=== PATIENT | male | born 1970 | race Caucasian/White ===

== ENCOUNTER 2018-02-13 05:42 | Day surgery (SDC) | payer OTHER ==
[~2018-02-13] VITALS: Ht 175.3 cm; Wt 110.7 kg
[~2018-02-13 05:42] MED LIST: HYDR25TA PO; LACTATED RINGERS 1,000 ML IV SCH
[2018-02-13 06:17] LABS: BASOPHILS % 0.5 % (0.0-2.0); EOSINOPHILS % 1.1 % (0.0-5.0); HEMATOCRIT. 48.8 % (42.0-52.0); HEMOGLOBIN. 17.5 g/dL (14.0-18.0); LYMPHOCYTES % 23.9 % (20.0-50.0); MEAN CORPUSCULAR HEMOGLOBIN 32.5 pg (28.0-32.0); MEAN CORPUSCULAR VOLUME 90.9 fL (80.0-94.0); MEAN PLATELET VOLUME 8.3 fl (7.4-10.4); MONOCYTES % 9.3 % (2.0-8.0); NEUTROPHILS % 65.2 % (40.0-76.0); PLATELET 411 x1000/uL (130-400); RED BLOOD CELL COUNT 5.37 mill/uL (4.7-6.1); RED CELL DISTRIBUTION WIDTH 12.7 % (11.6-14.6)
[2018-02-13 06:27] LABS: CHLORIDE 102 mEq/L (98-107)
[2018-02-13] MEDS ORDERED: BUPIVACAINE HCL 0.5% (5MG/ML) 50ML ONE (06:51)
[2018-02-13] MEDS ORDERED: SKIN ADHESIVE 0.7 GM EA TOP ONE (06:51)
[2018-02-13 07:45] LABS: CLARITY URINE CLEAR (CLEAR); COLOR URINE YELLOW (YELLOW); KETONES URINE NEGATIVE (NEGATIVE); LEUKOCYTE ESTERASE URINE NEGATIVE (NEGATIVE); NITRITE URINE NEGATIVE (NEGATIVE); OCCULT BLOOD URINE NEGATIVE (NEGATIVE); PROTEIN URINE NEGATIVE (NEGATIVE); SPECIFIC GRAVITY URINE 1.017 (1.005-1.030); UROBILINOGEN URINE 0.2 E.U./dL (0.2-1.0)
[2018-02-13] MEDS ORDERED: GLYCOPYRROLATE 0.2 MG/ML 2ML VIAL ONE (09:03)
[2018-02-13] MEDS ORDERED: ROCURONIUM BROMIDE 10MG/ML VIAL 5ML IV ONE (09:03)
[2018-02-13] MEDS ORDERED: FENTANYL CITRATE/PF 50MCG/ML 2ML VIAL ONE (09:03)
[2018-02-13] MEDS ORDERED: MIDAZOLAM HCL 2 MG/2 ML VIAL ONE (09:03)
[2018-02-13] MEDS ORDERED: PROPOFOL 200MG/20ML VIAL IV ONE (09:03)
[2018-02-13] MEDS ORDERED: HYDROMORPHONE HCL/PF 2MG/ML (OR) ONE (09:35)
[2018-02-13] MEDS ORDERED: METOCLOPRAMIDE HCL 10MG/2ML VIAL ONE (09:49)
[2018-02-13] MEDS ORDERED: ONDANSETRON HCL 4MG/2ML INJ ONE (09:49)
[2018-02-13] MEDS ORDERED: NEOSTIGMINE METHYLSULFATE 1MG/ML 10 ML VIAL ONE (10:09)
[2018-02-13] MEDS ORDERED: MEPERIDINE HCL/PF 25MG/ML CPJ IV PRN (10:45)
[2018-02-13] MEDS ORDERED: HYDROMORPHONE HCL/PF 2MG/ML CPJ IV PRN (10:45)
[2018-02-13] MEDS ORDERED: HYDROCODONE/ACETAMINOPHEN 10/325MG TABLET PO NR (11:40)
[2018-02-13 11:53] VITALS: BP 142/75
== END 2018-02-13 12:10 | disposition home or self-care (01) ==
LOC: OR 05:42
PROVIDERS: ATTEND Surgery
DX: K43.9 Ventral hernia without obstruction or gangrene (principal); Z79.899 Other long term (current) drug therapy
CPT/HCPCS: 36415; 49560; 49568; 80048; 81003; 85025; C1781; J1170; J2250; J2405; J2710; J2765; J3010; J3490; J2704